=== PATIENT | male | born 1980 | race Caucasian/White ===

== ENCOUNTER 2021-04-05 11:47 | Emergency (ER) | payer SELFPAY ==
[2021-04-05 12:20] VITALS: BP 132/82; PULSE 85; RESP 16; TEMP 36.9; O2SAT 99; BMI 21.7
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
[2021-04-05 15:01] VITALS: BP 132/82; PULSE 85; RESP 16; TEMP 36.9; O2SAT 99
== END 2021-04-05 15:02 | disposition home or self-care (01) ==
PROVIDERS: Emergency Provider Student in an Organized Health Care Education/Training Program
DX: T18.9XXA Foreign body of alimentary tract, part unspecified, initial encounter (principal); T54.2X1A Toxic effect of corrosive acids and acid-like substances, accidental (unintentional), initial encounter; Y92.73 Farm field as the place of occurrence of the external cause
CPT/HCPCS: 99281

== ENCOUNTER 2024-05-23 09:41 | Emergency (ER) | payer SELFPAY ==
--- NOTE | 2024-05-23 09:46 | XR_ITS ---
PROCEDURE INFORMATION: Exam: XR Cervical Spine Exam date and time: 05/23/2024 11:06 AM Age: 43 years old Clinical indication: Injury or trauma; Fall; Blunt trauma; Additional info: Fell off of horse TECHNIQUE: Imaging protocol: Radiologic exam of the cervical spine. Views: 2 or 3 views. COMPARISON: No relevant prior studies available. FINDINGS: Bones/joints: No acute fracture or malalignment. No worrisome lytic or blastic osseous lesion. Mild multilevel disc space narrowing, marginal osteophyte formation, uncovertebral and facet hypertrophy. Soft tissues: Unremarkable. IMPRESSION: 1. No acute findings. 2. Mild multilevel degenerative change.
[2024-05-23 10:00] VITALS: BP 128/86; PULSE 77; RESP 18; TEMP 36.8; O2SAT 100; BMI 21.7
--- NOTE | 2024-05-23 10:56 | EXP.UTC ---
Discharge Plan Disposition Patient Disposition: Home, Self-Care Condition: Good Prescriptions Prescriptions: No Action No Known Home Medications Referrals Follow up/Referrals: Sulma Santana [Primary Care Provider] - See instructions Activity Restrictions/Add. Instructions Additional Instructions/Restrictions: If symptoms persist or worsen, go to primary care provider. Go to ER if you develop pain that inhibits your ability to move your neck/arms. Clinical Impressions Clinical Impression: Pain of neck with recent traumatic injury Instructions Patient Instructions: DI for Neck Pain, Neck Pain (Alternative Therapy) Print Language Print Language: Albanian Discharge ED Provider: Nanda Fitzgerald [facility] General Stated complaint: headache, neck pain AO Mode of Arrival: Ambulatory Source of Information: Patient Limitations: No Limitations Time Seen by Provider: 05/23/24 10:29 Description of Symptoms (Recalled from Triage Doc. by RN): PATIENT C/O NECK PAIN AFTER BEING THROWN OFF OF A HORSE LAST NIGHT HEENT Symptoms (Recalled from RN notes): No Resp Symptoms (Recalled from RN notes): No Skin Symptoms (Recalled from RN notes): No MS Symptoms (Recalled from RN notes): Yes Functional Status (Recalled from RN notes): WNL History of Present Illness Provider Complaint: Pt reports that his horse shied and threw him off the horse. Pt states that he landed on his head and it jammed his neck. He states that he can't move his neck due to the pain. He reports that he has to move his body to look side to side. Related Data Home Medications ?Medication ?Instructions ?Recorded ?Confirmed No Known Home Medications 05/23/24 05/23/24 Allergies Allergy/AdvReac Type Severity Reaction Status Date / Time No Known Allergies Allergy Verified 04/05/21 15:01 Worker's Comp Is this a Worker's Comp case?: No [facility] Disclaimer: The information contained in this section may have been updated after the patient was seen, as this information can be updated by other users. Medical History (Updated 05/23/24 @ 12:18 by Nanda Fitzgerald APRN) No significant past medical history Social History Smoking Status: Never smoker alcohol intake: never current occupational status: employed Travel in the last 8 weeks: None ROS Obtained: Yes All systems reviewed & no additional complaints except as documented Constitutional Constitutional: Reports system reviewed and no additional complaints, except as documented Eyes Eyes: Reports system reviewed and no additional complaints, except as documented ENT Ears, Nose, Mouth, and Throat: Reports system reviewed and no additional complaints, except as documented and Reports neck pain Cardiovascular Cardiovascular: Reports system reviewed and no additional complaints, except as documented Respiratory Respiratory: Reports system reviewed and no additional complaints, except as documented Gastrointestinal Gastrointestingal: Reports system reviewed and no additional complaints, except as documented Genitourinary Male Genitourinary: Reports system reviewed and no additional complaints, except as documented Musculoskeletal Musculoskeletal: Reports limited range of motion, Reports neck pain, Denies numbness and Denies tingling Comments: Denies numbness or tingling or pain going into limbs. Integumentary/Breasts Skin/Breast: Reports system reviewed and no additional complaints, except as documented Neurologic Neurologic: Reports system reviewed and no additional complaints, except as documented, Denies numbness and Denies tingling Endocrine Endocrine: Reports system reviewed and no additional complaints, except as documented Hematologic/Lymphatic Henatologic/Lymphatic: Reports system reviewed and no additional complaints, except as documented Physical Exam General General appearance: alert and in no apparent distress Expanded Head Exam Head exam physical: Present abrasion Head image: 1. abrasion 2. abrasion Eye Eye exam: Present normal appearance ENT ENT exam: Present normal exam and normal oropharynx Neck Neck exam: Present tenderness Expanded Neck Exam Neck exam focused ED: Present midline tenderness and paraspinal tenderness Chest Chest inspection: Present normal inspection and symmetric chest wall rise Respiratory Respiratory exam: Present normal lung sounds bilaterally Cardiovascular Cardiovascular exam: Present regular rate and normal rhythm Abdominal Exam Abdominal exam: Present soft Extremities Exam Extremities exam: Present normal inspection Back Exam Back exam: Present normal inspection Neurological Exam Neurological exam: Present alert and oriented X3 Psychiatric Psychiatric exam: Present normal affect and normal mood Skin Skin exam: Present warm, dry and intact Lymphatic Lymphatic Findings: no adenopathy Medical Decision Making Medical Records Screening: Per USPSTF and CDC recommendations, given the prevalence of disease in our region, it is our hospital?s policy to screen for HIV and viral Hepatitis for all patients aged 18 and over and those with ongoing risk factors. Stephen Inquiry Pt receiving controlled substance: No Stephen was queried for this patient: No Vital Signs: 05/23/24 10:00 Temperature 98.2 F Temperature Source Oral Pulse Rate [Left Brachial] 77 Respiratory Rate 18 Blood Pressure [Left Arm] 128/86 Blood Pressure Mean [Left Arm] 100 Blood Pressure Source [Left Arm] Automatic Cuff Blood Pressure Position [Left Arm] Sitting 02 Sat by Pulse Oximetry 100 Oxygen Delivery Method Room Air Orders (Tests/Meds): ORDERS Category Date Time Status XR cervical spine 3V Stat Exams 05/23/24 09:46 Ordered Radiology Data #1: Image(s): C-Spine Image Reviewed: Yes I reviewed the patient's radiology results and Yes I have reviewed radiologist's interpretation INDINGS: Bones/joints: No acute fracture or malalignment. No worrisome lytic or blastic osseous lesion. Mild multilevel disc space narrowing, marginal osteophyte formation, uncovertebral and facet hypertrophy. Soft tissues: Unremarkable. IMPRESSION: 1. No acute findings. 2. Mild multilevel degenerative change. 11:
[2024-05-23 12:14] VITALS: BP 128/86; PULSE 77; RESP 18; TEMP 36.8; O2SAT 100
== END 2024-05-23 12:29 | disposition home or self-care (01) ==
PROVIDERS: Emergency Provider Nurse Practitioner Family; PCP Nurse Practitioner Family
DX: M54.2 Cervicalgia (principal); R51.9 Headache, unspecified; V80.010A Animal-rider injured by fall from or being thrown from horse in noncollision accident, initial encounter; Y93.89 Activity, other specified; Y92.9 Unspecified place or not applicable
CPT/HCPCS: 72040; 99212; G0381